=== PATIENT | male | born 1975 | race Caucasian/White ===

== ENCOUNTER 2020-06-08 13:30 | Emergency (ER) | payer OTHER ==
[~2020-06-08] VITALS: Wt 77.1 kg
[~2020-06-08 13:30] MED LIST: ANTIVERT25 MG PO; AUGMENTIN 875 M1 TAB PO; CLARITIN10 MG PO; CYCLOBENZAPRINE10 MG PO; MEDROL DOSEPAK4 MG PO; Motrin,Rufen800 MG PO; PEN-VEE K500 MG PO
[2020-06-08] MEDS ORDERED: PREDNISONE50 MG PO (15:44)
== END 2020-06-08 15:48 | disposition home or self-care (01) ==
LOC: ED 13:30
DX: S29.012A Strain of muscle and tendon of back wall of thorax, initial encounter (principal); F17.200 Nicotine dependence, unspecified, uncomplicated; Z79.899 Other long term (current) drug therapy; X58.XXXA Exposure to other specified factors, initial encounter; Y93.89 Activity, other specified; Y92.89 Other specified places as the place of occurrence of the external cause; Y99.8 Other external cause status